=== PATIENT | female | born 1980 | race African-American/Black ===

== ENCOUNTER 2018-12-25 06:33 | Emergency (ER) | payer SELFPAY | END 2018-12-25 06:51 | disposition left against medical advice (07) | LOC: ER 06:45 | DX: R05 Cough (principal); Z53.21 Procedure and treatment not carried out due to patient leaving prior to being seen by health care provider ==

== ENCOUNTER 2019-01-29 22:31 | Emergency (ER) | payer SELFPAY ==
[~2019-01-29] VITALS: Ht 162.6 cm; Wt 55.0 kg
[2019-01-29] MEDS ORDERED: PREDNISONE 20MG TABLET PO STA (22:58)
[2019-01-29] MEDS ORDERED: IPRATROPIUM BROMIDE (0.02%) 0.5MG/2.5ML NEB HHN STA (22:58)
[2019-01-29] MEDS ORDERED: ALBUTEROL (0.083%) 2.5MG/3ML NEB HHN STA (22:58)
[2019-01-30 01:20] VITALS: BP 108/64
== END 2019-01-30 01:54 | disposition home or self-care (01) ==
LOC: ER 22:31
DX: J45.901 Unspecified asthma with (acute) exacerbation (principal); B20 Human immunodeficiency virus [HIV] disease; Z88.0 Allergy status to penicillin
CPT/HCPCS: 99283; J7512; J7611